=== PATIENT | male | born 1990 | race Caucasian/White ===

== ENCOUNTER 2018-01-06 22:05 | Emergency (ER) | payer MEDICAID ==
[2018-01-06 22:15] VITALS: BP 138/80
[2018-01-06] MEDS ORDERED: Take Home: Codeine/Promethazine 10-6.25 MG/5 ML Syrup 5 ML, 2 Cup Pack PO ONE (22:39)
[2018-01-06] MEDS ORDERED: methylPREDNISolone Acetate 80 MG/ML SDV IM ONE (22:39)
[2018-01-06] MEDS ORDERED: cefTRIAXone 1 GM Vial IM ONE (22:39)
[2018-01-06] MEDS ORDERED: Lidocaine 1% 20 ML MDV INJECT ONE (22:39)
--- NOTE | 2018-01-06 22:43 | EDM.PDOC ---
ED HPI GENERAL MEDICAL PROBLEM - General Chief Complaint: Respiratory Problem Stated Complaint: COUGH Time Seen by Provider: 01/06/18 22:34 Source of Information: Reports: Patient History Limitations: Reports: No Limitations - History of Present Illness INITIAL COMMENTS - FREE TEXT/NARRATIVE: Patient presents today with concerns of ongoing chest congestion and cough. Has had symptoms for over a week. Was seen in clinic last weekend and placed on Amoxicillin and prednisone. Took for 2 days but then lost the meds. Started getting worse again on Tuesday of this week. Has been coughing to the point of vomiting. Patient states chest is tight, wheezy. Cough was productive while on the prednisone, but now dry. Does feel short of breath at times, especially with coughing spells. Patient denies fever. Has sinus congestion, drainage. No headaches. Onset: Gradual Duration: Day(s): Location: Reports: Chest Associated Symptoms: Reports: Cough, Nausea/Vomiting, Shortness of Breath. Denies: Chest Pain, Fever/Chills, Loss of Appetite, Syncope Treatments NETWORK PROFESSIONAL: Reports: Other (see below) Other Treatments NETWORK PROFESSIONAL: SUDAFED - Related Data Allergies Allergy/AdvReac Type Severity Reaction Status Date / Time No Known Drug Allergies Allergy Other Verified 01/06/18 22:19 Home Meds: Home Meds . [No Known Home Meds] 09/11/15 [History] Past Medical History Respiratory History: Reports: Asthma Psychiatric History: Reports: Anxiety Other Dermatologic History: staph infection to right upper arm Social & Family History - Family History Family Medical History: Noncontributory - Tobacco Use Smoking Status *Q: Never Smoker Second Hand Smoke Exposure: No - Caffeine Use Caffeine Use: Reports: Soda - Alcohol Use Days Per Week of Alcohol Use: 0 - Recreational Drug Use Recreational Drug Use: No ED ROS GENERAL - Review of Systems Review Of Systems: See Below Constitutional: Reports: Malaise, Weakness. Denies: Fever, Chills, Decreased Appetite HEENT: Reports: Rhinitis, Sinus Problem. Denies: Ear Pain, Throat Pain Respiratory: Reports: Shortness of Breath, Cough. Denies: Sputum Cardiovascular: Denies: Chest Pain, Edema, Lightheadedness Endocrine: Reports: Fatigue GI/Abdominal: Denies: Abdominal Pain, Nausea, Vomiting ED EXAM, GENERAL - Physical Exam Exam: See Below Exam Limited By: No Limitations General Appearance: Alert, WD/WN, No Apparent Distress Ears: Normal External Exam, Normal TMs Nose: Normal Inspection, Normal Mucosa, Nasal Drainage, Other (sinus tenderness bilat) Throat/Mouth: Normal Inspection, Normal Oropharynx Head: Normocephalic Neck: Normal Inspection, Supple, Non-Tender Respiratory/Chest: No Respiratory Distress, Wheezing Cardiovascular: Regular Rate, Rhythm Neurological: Alert, Oriented Skin Exam: Warm, Dry Course - Vital Signs Last Recorded V/S: Last Vital Signs Temp 97.2 F 01/06/18 22:06 Pulse 110 H 01/06/18 22:06 Resp 18 01/06/18 22:06 BP 138/80 01/06/18 22:06 Pulse Ox 95 01/06/18 22:06 - Orders/Labs/Meds Meds: Medications Discontinued Medications Generic Name Dose Route Start Last Admin Trade Name Rachel PRN Reason Stop Dose Admin Ceftriaxone Sodium 1 gm 01/06/18 22:39 Rocephin IM 01/06/18 22:40 ONETIME ONE Lidocaine HCl 20 ml 01/06/18 22:39 Xylocaine 1% INJECT 01/06/18 22:40 ONETIME ONE Methylprednisolone Acetate 80 mg 01/06/18 22:39 Depo-Medrol IM 01/06/18 22:40 ONETIME ONE Promethazine HCl/Codeine 2 packet 01/06/18 22:39 Take Home: Codeine/Prometh 10-6.25 Mg, 2 Pack PO 01/06/18 22:40 ONETIME ONE Departure - Departure Time of Disposition: 22:41 Disposition: Home, Self-Care 01 Condition: Good Clinical Impression: Bronchitis - Discharge Information Forms: ED Department Discharge Additional Instructions: 1. Rest 2. Push fluids 3. Ceftin 250 mg twice a day for 10 days 4. Prometh with codeine syrup- 1-2 tsp every 6 hours as needed for cough 5. Follow up in clinic if any ongoing concerns.
== END 2018-01-06 23:12 | disposition home or self-care (01) ==
LOC: CC.ED 22:05
DX: J40 Bronchitis, not specified as acute or chronic (principal)
CPT/HCPCS: 96372; 99283; J0696; J1040

== ENCOUNTER 2018-03-13 06:10 | Emergency (ER) | payer MEDICAID ==
[2018-03-13] MEDS ORDERED: Acetaminophen/HYDROcodone 325-5 MG Tab PO ONE (06:11)
[2018-03-13] MEDS ORDERED: Tamsulosin 0.4 MG Cap.ER ONE (06:29)
[2018-03-13] MEDS ORDERED: HYDROmorphone 1 MG/ML Syringe ONE (06:29)
[2018-03-13 06:30] VITALS: BP 144/99
[2018-03-13] MEDS ORDERED: Tamsulosin 0.4 MG Cap.ER PO ONE (06:49)
[2018-03-13] MEDS ORDERED: HYDROmorphone 1 MG/ML Syringe IVPUSH ONE ×2 (06:49→07:24)
[2018-03-13] MEDS ORDERED: Sodium Chloride 0.9% 500 ML IV SCH ×2 (07:00→09:45)
--- NOTE | 2018-03-13 07:12 | EDM.PDOC ---
ED HPI GENERAL MEDICAL PROBLEM - General Chief Complaint: General Stated Complaint: flank pain Time Seen by Provider: 03/13/18 06:25 Source of Information: Reports: Patient History Limitations: Reports: No Limitations - History of Present Illness Onset: Today, Sudden Location: Reports: Other (RIGHT low back radiating into RLQ abdomen and RIGHT side scrotum) Quality: Reports: Throbbing Severity: Severe Associated Symptoms: Reports: No Other Symptoms Right Groin Pain Score (Numeric/FACES): 5 - Related Data Allergies Allergy/AdvReac Type Severity Reaction Status Date / Time No Known Drug Allergies Allergy Other Verified 03/13/18 06:19 Home Meds: Home Meds . [No Known Home Meds] 09/11/15 [History] Past Medical History Respiratory History: Reports: Asthma Psychiatric History: Reports: Anxiety Other Dermatologic History: staph infection to right upper arm Social & Family History - Family History Family Medical History: Noncontributory - Tobacco Use Smoking Status *Q: Never Smoker Second Hand Smoke Exposure: No - Caffeine Use Caffeine Use: Reports: Soda ED ROS GENERAL - Review of Systems Review Of Systems: See Below Constitutional: Reports: No Symptoms Respiratory: Reports: No Symptoms Cardiovascular: Reports: No Symptoms GI/Abdominal: Reports: Abdominal Pain, Other (1x episode of non bloody, non bilious emesis am today) : Reports: Flank Pain, Pain Musculoskeletal: Reports: No Symptoms Skin: Reports: No Symptoms Neurological: Reports: No Symptoms ED EXAM, GENERAL - Physical Exam Exam: See Below Exam Limited By: No Limitations General Appearance: Alert, WD/WN, Mild Distress Respiratory/Chest: No Respiratory Distress, No Accessory Muscle Use Cardiovascular: Normal Peripheral Pulses, Regular Rate, Rhythm Peripheral Pulses: 2+: Radial (L), Radial (R) GI/Abdominal: Normal Bowel Sounds, Soft, Non-Tender, No Organomegaly, No Distention, No Abnormal Bruit, No Mass, Other (RIGHT flank tender to palpation.) (Male) Exam: No Hernia, Normal Inspection, Circumcised Back Exam: CVA Tenderness (R) Extremities: Normal Inspection, Normal Range of Motion, Non-Tender, Normal Capillary Refill, No Pedal Edema Neurological: Alert, Oriented, Normal Cognition Psychiatric: Normal Affect, Normal Mood Course - Vital Signs Last Recorded V/S: Last Vital Signs Temp 36.8 C 03/13/18 06:20 Pulse 88 05/28/18 06:20 Resp 18 03/13/18 06:20 BP 144/99 H 03/13/18 06:20 Pulse Ox 97 03/13/18 06:20 - Orders/Labs/Meds Orders: Active Orders 24 hr Category Date Time Status Acetaminophen/HYDROcodone [Take Home: Acetaminophen/ Med 03/13/18 08:31 Once HYDROcod, 2 Tab Pack] 2 packet PO ONETIME ONE Sodium Chloride 0.9% [Normal Saline] 500 ml Med 03/13/18 07:00 Active IV .BOLUS Medication Orders Hydrocodone Bitart/Acetaminophen (Take Home: Acetaminophen/Hydrocod, 2 Tab Pack ) 2 packet PO ONETIME ONE Stop: 03/13/18 08:32 Sodium Chloride (Normal Saline) 500 mls @ 1,000 mls/hr IV .BOLUS ADAM Labs: Laboratory Tests 03/13/18 Range/Units 06:26 Urine Color Yellow (YELLOW) Urine Appearance Slightly cloudy (CLEAR) Urine pH 5.5 (4.5-8.0) Ur Specific [place] >= 1.030 H (1.003-1.020) Urine Protein Trace H (NEGATIVE) mg/dL Urine Glucose (UA) Negative (NEGATIVE) mg/dL Urine Ketones Negative (NEGATIVE) mg/dL Urine Occult Blood Small H (NEGATIVE) Urine Nitrite Negative (NEGATIVE) Urine Bilirubin Negative (NEGATIVE) Urine Urobilinogen 0.2 (0.2-1.0) EU/dL Ur Leukocyte Esterase Negative (NEGATIVE) Urine RBC 0-5 (0-5) /HPF Urine WBC Not seen (0-5) /HPF Meds: Medications Generic Name Dose Route Start Last Admin Trade Name Freq PRN Reason Stop Dose Admin Hydrocodone Bitart/Acetaminophen 2 packet 03/13/18 08:31 Take Home: Acetaminophen/Hydrocod, 2 Tab Pack PO 03/13/18 08:32 ONETIME ONE Sodium Chloride 500 mls @ 1,000 mls/hr 03/13/18 07:00 Normal Saline IV .BOLUS ADAM Discontinued Medications Generic Name Dose Route Start Last Admin Trade Name Freq PRN Reason Stop Dose Admin Hydromorphone HCl Confirm 03/13/18 06:29 03/13/18 06:44 Dilaudid Administered 03/13/18 06:30 Not Given Dose 1 mg .ROUTE .STK-MED ONE Hydromorphone HCl 1 mg 03/13/18 06:49 03/13/18 06:43 Dilaudid IVPUSH 03/13/18 06:50 1 mg ONETIME ONE Administration Hydromorphone HCl 1 mg 03/13/18 07:24 03/13/18 07:26 Dilaudid IVPUSH 03/13/18 07:25 1 mg ONETIME ONE Administration Sodium Chloride Confirm 03/13/18 07:37 Normal Saline Administered 03/13/18 07:38 Dose 500 mls @ as directed .ROUTE .STK-MED ONE Tamsulosin HCl Confirm 03/13/18 06:29 03/13/18 06:44 Flomax Administered 03/13/18 06:30 Not Given Dose 0.4 mg .ROUTE .STK-MED ONE Tamsulosin HCl 0.4 mg 03/13/18 06:49 03/13/18 06:52 Flomax PO 03/13/18 06:50 0.4 mg ONETIME ONE Administration Departure - Departure Time of Disposition: 08:30 Disposition: Home, Self-Care 01 Clinical Impression: Kidney calculi - Discharge Information Instructions: Kidney Stones Referrals: Provider,Unknown [Primary Care Provider] - Forms: ED Department Discharge - My Orders Last 24 Hours: My Active Orders 03/13/18 07:00 Sodium Chloride 0.9% [Normal Saline] 500 ml IV .BOLUS 03/13/18 08:31 Acetaminophen/HYDROcodone [Take Home: Acetaminophen/HYDROcod, 2 Tab Pack] 2 packet PO ONETIME ONE - Assessment/Plan Last 24 Hours: My Active Orders 03/13/18 07:00 Sodium Chloride 0.9% [Normal Saline] 500 ml IV .BOLUS 03/13/18 08:31 Acetaminophen/HYDROcodone [Take Home: Acetaminophen/HYDROcod, 2 Tab Pack] 2 packet PO ONETIME ONE Assessment:: Physical exam and UA consistent with likely renal calculi. Here in the ED the patient is given 1L NS IV and 2 mg dilaudid IV which controlled his pain. He is given an Rx for 2 days of [place] PRN pain and a strainer. Advised patient to rest , hydrate, take all Rx as directed, fu with PCP in 3-5 days for repeat exam, go to ED if change or worse. Patient and fiance at bedside report understanding and agreement with plan. DC home stable in care of fiance.
[2018-03-13] MEDS ORDERED: Sodium Chloride 0.9% 500 ML ONE (07:37)
[2018-03-13] MEDS ORDERED: Take Home: Acetaminophen/HYDROcodone 325-5 MG, 2 Tab Pack PO ONE (08:31)
== END 2018-03-13 08:45 | disposition home or self-care (01) ==
LOC: CC.ED 06:10
DX: N20.0 Calculus of kidney (principal)
CPT/HCPCS: 81001; 82360; 96361; 96374; 96376; 99284; A9270; J1170; J7040; 96375

== ENCOUNTER 2019-02-21 01:08 | Emergency (ER) | payer MEDICAID ==
[2019-02-21 01:13] VITALS: BP 139/82
--- NOTE | 2019-02-21 02:31 | EDM.PDOC ---
ED HPI GENERAL MEDICAL PROBLEM - General Chief Complaint: ENT Problem Stated Complaint: coughing blood Time Seen by Provider: 02/21/19 01:41 Source of Information: Reports: Patient History Limitations: Reports: No Limitations - History of Present Illness INITIAL COMMENTS - FREE TEXT/NARRATIVE: Emiliano is a 28 yo male who presents to the ED via [facility] with complaints of bleeding after having a tonsillectomy. He states he woke up around 12:30 this morning and was spitting out clots of blood. He underwent a tonsillectomy on the [address] Benjamin in [place]. States he ended up going back into surgery the same day for bleeding. He has been doing fine up until this morning. Isn't able to eat a lot of solid foods but admits to drinking a large amount of water every day. throat Pain Score (Numeric/FACES): 5 - Related Data Allergies Allergy/AdvReac Type Severity Reaction Status Date / Time No Known Drug Allergies Allergy Other Verified 02/21/19 01:15 Home Meds: Home Meds Venlafaxine [Effexor XR] 1 tab PO DAILY 02/21/19 [History] oxyCODONE 5 mg PO Q4H 02/21/19 [History] Past Medical History Respiratory History: Reports: Asthma Psychiatric History: Reports: Anxiety Other Dermatologic History: staph infection to right upper arm - Past Surgical History HEENT Surgical History: Reports: Tonsillectomy Social & Family History - Family History Family Medical History: Noncontributory - Tobacco Use Smoking Status *Q: Never Smoker - Caffeine Use Caffeine Use: Reports: Soda - Recreational Drug Use Recreational Drug Use: No ED ROS ENT - Review of Systems Review Of Systems: See Below Constitutional: Denies: Fever, Chills HEENT: Reports: Throat Pain, Throat Swelling, Other (bleeding but has slowed down). Denies: Nose Pain, Sinus Problem Respiratory: Reports: No Symptoms Cardiovascular: Reports: No Symptoms GI/Abdominal: Reports: No Symptoms : Reports: No Symptoms Musculoskeletal: Reports: No Symptoms ED EXAM, ENT - Physical Exam Exam: See Below Exam Limited By: No Limitations General Appearance: Alert, No Apparent Distress Ears: Normal External Exam, Normal Canal, Hearing Grossly Normal, Normal TMs Nose: Normal Inspection, Dried Blood. No: Active Bleeding Mouth/Throat: Pharyngeal Erythema, Throat Pain. No: Bleeding, Peritonsillar Mass Head: Atraumatic, Normocephalic Neck: Normal Inspection, Supple Respiratory/Chest: No Respiratory Distress, Lungs Clear, No Accessory Muscle Use Cardiovascular: Normal Peripheral Pulses, Regular Rate, Rhythm, No Murmur. No: Tachycardia Neurological: Alert, Oriented, No Motor/Sensory Deficits Psychiatric: Normal Affect, Normal Mood Skin: Warm, Dry, Intact, Normal Color, No Rash Course - Vital Signs Last Recorded V/S: Last Vital Signs Temp 98 F 02/21/19 01:08 Pulse 84 02/21/19 01:08 Resp 18 02/21/19 01:08 BP 139/82 02/21/19 01:08 Pulse Ox 96 02/21/19 01:08 - Re-Assessments/Exams Free Text/Narrative Re-Assessment/Exam: No bleeding noted upon my arrival to ED. We did have Emiliano swish around cold water and spit it out. There was no active bleeding. After evaluation, there was two spots noted along the top left palate and left bridge that a scab had appeared to fall off. We will monitor Emiliano for a few hours and around 7 if he has no further complications, will discharge home. Departure - Departure Time of Disposition: 07:30 Disposition: Home, Self-Care 01 Clinical Impression: Status post tonsillectomy, Secondary post tonsillectomy hemorrhage - Discharge Information Referrals: John Perez MD [Primary Care Provider] - Forms: ED Department Discharge Additional Instructions: 1) Continue with current post op instructions. 2) If any bleeding returns or concerns at all, recommend returning for reevaluation - Problem List & Annotations (1) Secondary post tonsillectomy hemorrhage SNOMED Code(s): 831565940 Code(s): J95.830 - POSTPROC HEMOR OF A RESP SYS ORG FOL A RESP SYS PROCEDURE Status: Acute (2) Status post tonsillectomy SNOMED Code(s): 263179865, 867532589, 273722735 Code(s): Z90.89 - ACQUIRED ABSENCE OF OTHER ORGANS Status: Acute - Assessment/Plan Plan: Will discharge this morning at 7:30 if no further bleeding thru the night. No bleeding was noted through the night. Will discharge home at this time. Verbal instructions given to Emiliano. Patient was ambulatory and didn't appear to be in any distress.
== END 2019-02-21 07:29 | disposition home or self-care (01) ==
LOC: CC.ED 01:08
DX: J95.830 Postprocedural hemorrhage of a respiratory system organ or structure following a respiratory system procedure (principal); Z90.89 Acquired absence of other organs; F41.9 Anxiety disorder, unspecified; Z79.899 Other long term (current) drug therapy
CPT/HCPCS: 99283

== ENCOUNTER 2020-04-26 22:51 | Emergency (ER) | payer MEDICAID ==
[2020-04-26 22:59] VITALS: BP 143/95; PULSE 101
[2020-04-26] MEDS ORDERED: methylPREDNISolone Sodium Succinate 125 MG/2 ML SDV IM STA (23:26)
[2020-04-26] MEDS ORDERED: Albuterol/Ipratropium 3.0-0.5 MG/3 ML Neb Soln NEB ONE (23:31)
--- NOTE | 2020-04-26 23:31 | EDM.PDOC ---
ED HPI GENERAL MEDICAL PROBLEM - General Chief Complaint: Respiratory Problem Stated Complaint: SOB,COUGH Time Seen by Provider: 04/26/20 23:25 Source of Information: Reports: Patient History Limitations: Reports: No Limitations - History of Present Illness INITIAL COMMENTS - FREE TEXT/NARRATIVE: This patient is a 29 year old male that presents to the ER. Patient reports for 2 dyas having congestion, drainage, productive cough, wheezing. Patient reports chronic history of asthma. Patient reports he takes breathing treatments at home, but his last one was this morning. He reports he does not use it often because the way it makes him feel. The patient reports he was concerned about having covid because his dad has lung health issues. Onset Date: 04/24/20 Duration: Day(s): (2) Severity: Mild Improves with: Reports: None Worsens with: Reports: None Associated Symptoms: Reports: Cough, cough w sputum, Shortness of Breath. Denies: Confusion, Chest Pain, Diaphoresis, Fever/Chills, Headaches, Loss of Appetite, Malaise, Nausea/Vomiting, Rash, Seizure, Syncope, Weakness - Related Data Allergies Allergy/AdvReac Type Severity Reaction Status Date / Time No Known Drug Allergies Allergy Other Verified 04/26/20 23:07 Home Meds: Home Meds Venlafaxine [Effexor XR] 1 tab PO DAILY 02/21/19 [History] Amoxicillin 500 mg PO TID #30 capsule 04/26/20 [Rx] Azithromycin [Zithromax] 250 mg PO DAILY 5 Days #6 tab 04/26/20 [Rx] methylPREDNISolone [Medrol Dose Pack] 4 mg PO ASDIRECTED #1 dospk 04/26/20 [Rx] Past Medical History Respiratory History: Reports: Asthma Psychiatric History: Reports: Anxiety Other Dermatologic History: staph infection to right upper arm - Past Surgical History HEENT Surgical History: Reports: Tonsillectomy Social & Family History - Family History Family Medical History: Noncontributory - Tobacco Use Smoking Status *Q: Never Smoker - Caffeine Use Caffeine Use: Reports: None - Recreational Drug Use Recreational Drug Use: No ED ROS GENERAL - Review of Systems Review Of Systems: See Below Constitutional: Reports: No Symptoms HEENT: Reports: Rhinitis, Sinus Problem Respiratory: Reports: Shortness of Breath, Wheezing, Cough, Sputum Cardiovascular: Reports: No Symptoms Endocrine: Reports: No Symptoms GI/Abdominal: Reports: No Symptoms : Reports: No Symptoms Musculoskeletal: Reports: No Symptoms Skin: Reports: No Symptoms Neurological: Reports: No Symptoms Psychiatric: Reports: No Symptoms Hematologic/Lymphatic: Reports: No Symptoms Immunologic: Reports: No Symptoms ED EXAM, GENERAL - Physical Exam Exam: See Below Exam Limited By: No Limitations General Appearance: Alert, WD/WN, No Apparent Distress Eye Exam: Bilateral Eye: Normal Inspection, PERRL Ears: Normal External Exam, Normal Canal, Hearing Grossly Normal, Normal TMs Ear Exam: Bilateral Ear: Auricle Normal, Canal Normal, TM normal Nose: Normal Inspection, Normal Mucosa, No Blood Throat/Mouth: Normal Inspection, Normal Lips, Normal Teeth, Normal Gums, Normal Oropharynx, Normal Voice, No Airway Compromise Head: Atraumatic, Normocephalic Neck: Normal Inspection, Supple, Non-Tender, Full Range of Motion Respiratory/Chest: No Respiratory Distress, No Accessory Muscle Use, Chest Non- Tender, Wheezing (moderate throughout) Cardiovascular: Normal Peripheral Pulses, Regular Rate, Rhythm, No Edema, No Gallop, No JVD, No Murmur, No Rub Peripheral Pulses: 2+: Radial (L), Radial (R), Posterior Tibial (L), Posterior Tibial (R) Back Exam: Normal Inspection Extremities: Normal Inspection, No Pedal Edema Neurological: Alert, Oriented, No Motor/Sensory Deficits, Inattentive Psychiatric: Normal Affect, Normal Mood Skin Exam: Warm, Dry, Intact, Normal Color, No Rash Lymphatic: No Adenopathy Course - Vital Signs Last Recorded V/S: Last Vital Signs Temp 98.2 F 04/26/20 22:52 Pulse 101 H 04/26/20 22:52 Resp 18 04/26/20 22:52 BP 143/95 H 04/26/20 22:52 Pulse Ox 95 04/26/20 22:52 - Orders/Labs/Meds Orders: Active Orders 24 hr Category Date Time Status RT Aerosol Therapy [RC] ASDIRECTED Care 04/26/20 23:31 Ordered Chest 2V [CR] Stat Exams 04/26/20 23:01 Ordered Labs: Laboratory Tests 04/26/20 Range/Units 23:01 COVID-19 (STEVE) Negative (NEGATIVE) Meds: Medications Discontinued Medications Generic Name Dose Route Start Last Admin Trade Name Freq PRN Reason Stop Dose Admin Albuterol/Ipratropium 3 ml 04/26/20 23:31 Duoneb 3.0-0.5 Mg/3 Ml NEB 04/26/20 23:32 ONETIME ONE Methylprednisolone Sodium Succinate 125 mg 04/26/20 23:26 Solu-Medrol IM 04/26/20 23:27 NOW STA Departure - Departure Time of Disposition: 23:34 Disposition: Home, Self-Care 01 Condition: Good Clinical Impression: Asthma Acute bronchitis Qualifiers: Bronchitis organism: unspecified organism Qualified Code(s): J20.9 - Acute bronchitis, unspecified - Discharge Information *PRESCRIPTION DRUG MONITORING PROGRAM REVIEWED*: Not Applicable *COPY OF PRESCRIPTION DRUG MONITORING REPORT IN PATIENT WAQAS: Not Applicable Prescriptions: Amoxicillin 500 mg PO TID #30 capsule methylPREDNISolone [Medrol Dose Pack] 4 mg PO ASDIRECTED #1 dospk Azithromycin [Zithromax] 250 mg PO DAILY 5 Days #6 tab Instructions: Asthma, Adult, Acute Bronchitis, Adult Referrals: PCP,None [Primary Care Provider] - Forms: ED Department Discharge Additional Instructions: Followup with your primary care provider Return to the ER for worsening of condition or any emergent concerns ZAichaLeón (Tell pharmacy you do not want this one!!!) Amoxicillin 500mg 1 pill three times a day for 10 days #30 no refill Medrol Dose Pack as directed #1 no refill sent to pharmacy Take your neb treatments at home every 4-6 hours as needed for cough, tightness in chest, or shortness of breath Sepsis Event Note (ED) - Evaluation Sepsis Screening Result: No Definite Risk - Focused Exam Vital Signs: Vital Signs Temp Pulse Resp BP Pulse Ox 04/26/20 22:52 98.2 F 101 H 18 143/95 H 95 - My Orders Last 24 Hours: My Active Orders 04/26/20 23:01 Chest 2V [CR] Stat 04/26/20 23:31 RT Aerosol Therapy [RC] ASDIRECTED - Assessment/Plan Last 24 Hours: My Active Orders 04/26/20 23:01 Chest 2V [CR] Stat 04/26/20 23:31 RT Aerosol Therapy [RC] ASDIRECTED Plan: PLEASE SEE RN NOTE FOR PFSH
== END 2020-04-26 23:55 | disposition home or self-care (01) ==
LOC: CC.ED 22:51
DX: J20.9 Acute bronchitis, unspecified (principal); J45.909 Unspecified asthma, uncomplicated; F41.9 Anxiety disorder, unspecified; Z20.828 Contact with and (suspected) exposure to other viral communicable diseases; Z79.899 Other long term (current) drug therapy
CPT/HCPCS: 71046; 87635; 94640; 96372; 99285; J2930; J7620-GY; U0002

== ENCOUNTER 2021-07-01 19:41 | Emergency (ER) | payer MEDICAID ==
[2021-07-01 19:55] VITALS: BP 138/85; PULSE 98
[2021-07-01] MEDS: Bacitracin/Neomycin/Polymyxin B Oint 0.9 GM U/D Packet TOP ONE (20:05)
--- NOTE | 2021-07-01 20:09 | EDM.PDOC ---
ED HPI GENERAL MEDICAL PROBLEM - General Chief Complaint: General Stated Complaint: left thigh cut on a external grinder Time Seen by Provider: 07/01/21 20:01 Source of Information: Reports: Patient History Limitations: Reports: No Limitations - History of Present Illness INITIAL COMMENTS - FREE TEXT/NARRATIVE: Jaret is a 30 year old male who presents to ER with a cut to his left upper thigh. States was grinding on metal and had a cheap blade and it broke off and ricocheted back on to his jeans. Did "break the skin and part of it is gone and wonders if will need stitches". Mild discomfort. Last tetanus 1 year ago. Onset: Today, Sudden Duration: Minutes:, Constant Location: Reports: Upper Extremity, Left Quality: Reports: Ache Severity: Mild Associated Symptoms: Reports: No Other Symptoms - Related Data Allergies Allergy/AdvReac Type Severity Reaction Status Date / Time azithromycin Allergy Rash Verified 07/01/21 19:55 Home Meds: Home Meds Venlafaxine [Effexor XR] 1 tab PO DAILY 02/21/19 [History] Albuterol [Proventil Neb Soln] 1 dose INH DAILY PRN 07/01/21 [History] Past Medical History Respiratory History: Reports: Asthma Psychiatric History: Reports: Anxiety Other Dermatologic History: staph infection to right upper arm - Past Surgical History HEENT Surgical History: Reports: Tonsillectomy Social & Family History - Family History Family Medical History: No Pertinent Family History - Tobacco Use Tobacco Use Status *Q: Never Tobacco User - Caffeine Use Caffeine Use: Reports: None ED ROS GENERAL - Review of Systems Review Of Systems: Comprehensive ROS is negative, except as noted in HPI. ED EXAM, GENERAL - Physical Exam Exam: See Below Exam Limited By: No Limitations General Appearance: Alert, WD/WN, No Apparent Distress Extremities: Normal Range of Motion Neurological: Alert, Oriented Skin Exam: Wound/Incision (Has Y-shaped superficial laceration to the left upper thigh. Edge of cut has avulsion of the skin. Triple antibiotic ointment and a bandage applied after cleansing with saf-clens. ) Course - Vital Signs Last Recorded V/S: Last Vital Signs Temp 97.5 F 07/01/21 19:49 Pulse 98 07/01/21 19:49 Resp 18 07/01/21 19:49 BP 138/85 07/01/21 19:49 Pulse Ox 96 07/01/21 19:49 - Orders/Labs/Meds Meds: Medications Discontinued Medications Generic Name Dose Route Start Last Admin Trade Name Rachel PRN Reason Stop Dose Admin Neomycin/Polymyxin/Bacitracin 1 each 07/01/21 20:03 Bacitracin/Neomycin/Polymyxin B Oint 0.9 Gm U/D Packet TOP 07/01/21 20:04 ONETIME ONE Departure - Departure Time of Disposition: 20:08 Disposition: Home, Self-Care 01 Condition: Good Clinical Impression: Superficial laceration - Discharge Information *PRESCRIPTION DRUG MONITORING PROGRAM REVIEWED*: No *COPY OF PRESCRIPTION DRUG MONITORING REPORT IN PATIENT WAQAS: No Instructions: Nonsutured Laceration Care Referrals: PCP,None [Primary Care Provider] - Additional Instructions: 1. Keep wound clean and dry 2. Cover with triple antibiotic ointment daily with dressing change 3. Monitor for increased redness, drainage, warmth or pain 4. Follow up if any concern. Sepsis Event Note (ED) - Evaluation Sepsis Screening Result: No Definite Risk - Focused Exam Vital Signs: Vital Signs Temp Pulse Resp BP Pulse Ox 07/01/21 19:49 97.5 F 98 18 138/85 96
== END 2021-07-01 20:17 | disposition home or self-care (01) ==
LOC: CC.ED 19:41
DX: S71.112A Laceration without foreign body, left thigh, initial encounter (principal); Z88.1 Allergy status to other antibiotic agents; W26.8XXA Contact with other sharp object(s), not elsewhere classified, initial encounter
CPT/HCPCS: 99282

== ENCOUNTER 2023-07-31 15:07 | Emergency (ER) | payer MEDICAID ==
[2023-07-31 15:10] VITALS: BP 146/80; PULSE 102
[2023-07-31] MEDS ORDERED: cefTRIAXone 1 GM, Lidocaine 1% 2.1 ML IM SCH ×2 (15:30)
== END 2023-07-31 16:06 | disposition home or self-care (01) ==
LOC: CC.ED 15:07
DX: L03.115 Cellulitis of right lower limb (principal); T63.304A Toxic effect of unspecified spider venom, undetermined, initial encounter; Z88.1 Allergy status to other antibiotic agents; W57.XXXA Bitten or stung by nonvenomous insect and other nonvenomous arthropods, initial encounter
CPT/HCPCS: 96372; 99282; 99283; J0696; J3490

== ENCOUNTER 2024-04-08 12:34 | Emergency (ER) | payer MEDICAID ==
[2024-04-08 12:39] VITALS: BP 136/85; PULSE 91
[2024-04-08] MEDS: Lidocaine 1% 5 ML VIAL INJECT ONE (12:46)
[2024-04-08] MEDS: Bacitracin/Neomycin/Polymyxin B Oint 0.9 GM U/D Packet TOP ONE (13:02)
== END 2024-04-08 13:10 | disposition home or self-care (01) ==
LOC: CC.ED 12:34
DX: S61.210A Laceration without foreign body of right index finger without damage to nail, initial encounter (principal); Z88.1 Allergy status to other antibiotic agents; Z88.8 Allergy status to other drugs, medicaments and biological substances; Z79.899 Other long term (current) drug therapy; W26.8XXA Contact with other sharp object(s), not elsewhere classified, initial encounter; Y93.89 Activity, other specified
CPT/HCPCS: 12001; 99282; 99283; A9270; J3490